=== PATIENT | male | born 1955 | race Caucasian/White ===

== ENCOUNTER 2021-12-31 12:01 | Day surgery (SDC) | payer MEDICARE, OTHER ==
[~2021-12-31] VITALS: Ht 177.8 cm; Wt 95.0 kg
[~2021-12-31 12:01] MED LIST: ASPIRIN EC81 MG PO; GLUCOSAMINE &1 EAC1 PO; LIPITOR40 MG PO; LISINOPRIL-HCT1 EACH PO; SIMVASTATIN20 MG PO; ZANTAC150 MG PO
[2021-12-31] MEDS ORDERED: VITAMIN C500 M1 PO (12:26)
[2021-12-31] MEDS ORDERED: ZINC50 MG PO (12:26)
--- NOTE | 2021-12-31 13:51 | NUR ---
12/31/21 135[address] 134- PT ARRIVES TO PACU AWAKE AND TALKING WITH STAFF. PT REPORTS NO PAIN OR NAUSEA. DISCUSSED WITH PT ABOUT PASSING FLATUS. RESP EVEN AND UNLABORED. OXYGEN SAT MID TO HIGH 90'S ON 2L VIA NC.
--- NOTE | 2022-01-02 10:03 | PATH ---
[facility] [address], [place] [address] Signed SPECIMEN(S): A DUODENAL BIOPSY SPECIMEN(S): B ANTRUM/PYLORUS BIOPSY SPECIMEN(S): C DISTAL ESOPHAGEAL BIOPSY SPECIMEN(S): D MID ESOPHAGEAL BIOPSY SPECIMEN(S): E COLON POLYP AT 30 CM (POSSIBLE POLYP) SPECIMEN SOURCE: A. DUODENAL BIOPSY B. ANTRUM/PYLORUS BIOPSY C. DISTAL ESOPHAGEAL BIOPSY D. MID ESOPHAGEAL BIOPSY E. COLON POLYP AT 30 CM (POSSIBLE POLYP) CLINICAL HISTORY: EGD and colonoscopy. Esophageal dysphagia. Postop: Probable eosinophilic esophagitis; possible polyp at 30 cm. FINAL PATHOLOGIC DIAGNOSIS: A. Duodenum, biopsy: - No significant histopathology. B. Antrum/pylorus, biopsy: - Chemical gastropathy. C. Distal esophagus, biopsy: - Eosinophilic esophagitis. D. Mid esophagus, biopsy: - Eosinophilic esophagitis. E. Colon, 30 cm, polypectomy: - No significant histopathology. - There is no evidence of neoplasia. COMMENT: Regarding specimen A, the sections from the duodenal biopsy show portions of duodenal mucosa with long finger-like villi. There is no villous atrophy, crypt hyperplasia or intraepithelial lymphocytosis, making a diagnosis of celiac disease unlikely. There is no evidence of peptic duodenitis, microorganisms, abnormal infiltrates or neoplasia. Regarding specimen B, these sections reveal features of mild chemical gastropathy. The gastric pits appear slightly irregular, and there is mild mucosal congestion. There is no evidence of acute or chronic inflammation. Chemical gastropathies are most commonly seen in PATIENT NAME: MIGUEL A SHANNON PATHOLOGY DATE OF : 57 REPORT #: [id number] PHYSICIAN: FAUSTO ALMONTE PCP: NO PRIMARY CARE PHYSICIAN REPORT IS CONFIDENTIAL AND NOT TO BE RELEASED WITHOUT AUTHORIZATION [facility] [address], [place] [address] Signed individuals with alkaline reflux, exposure to drugs as well as other chemicals. There is no acute or chronic inflammation. There is no evidence of H. pylori, intestinal metaplasia, abnormal infiltrates or neoplasia. Regarding specimens C and D, the sections through the biopsy show fragments of reactive appearing squamous epithelium that is infiltrated with increased numbers of eosinophils. Focally there are approximately 24 intraepithelial eosinophils per high-power magnification field. Scattered eosinophilic microabscesses are not present. Superficial zonation of the eosinophils is seen. These findings are consistent with the diagnosis of eosinophilic esophagitis. A thickened squamous basal layer is present, and no glandular mucosa is identified. Regarding specimen E, the sections from the specimen are architecturally normal without crypt distortion. There is no acute or chronic inflammation. There are no abnormal infiltrates. There is no evidence of inflammatory, hyperplastic or adenomatous polyps. TWK:caw:[id number] MICROSCOPIC EXAMINATION: Histologic sections of all submitted blocks are examined by light microscopy. These findings, together with the gross examination, support the pathologic diagnosis. GROSS DESCRIPTION: Five specimens are received in five containers, labeled "CM." A. The specimen, labeled "CM, duodenum biopsy," is received in formalin and consists of two chavez soft tissue fragments that measure 0.1-0.2 cm in greatest dimension. The specimen is entirely submitted in cassette (A1). B. The specimen, labeled "CM, antrum biopsy," is received in formalin and consists of two chavez soft tissue fragments that measure 0.1 cm in greatest dimension. The specimen is entirely submitted in cassette (B1). C. The specimen, labeled "CM, distal esophagus biopsy," is received in formalin and consists of four chavez soft tissue fragments that measure 0.3 cm in greatest dimension. The specimen is entirely submitted in cassette (C1). D. The specimen, labeled "CM, mid esophagus biopsy," is received in formalin and consists of ten chavez soft tissue fragments that measure 0.1-0.3 cm in greatest dimension. The specimen is entirely PATIENT NAME: MIGUEL A SHANNON PATHOLOGY DATE OF : 57 REPORT #: [id number] PHYSICIAN: FAUSTO ALMONTE PCP: NO PRIMARY CARE PHYSICIAN REPORT IS CONFIDENTIAL AND NOT TO BE RELEASED WITHOUT AUTHORIZATION [facility] [address], [place] [address] Signed submitted in cassette (D1). E. The specimen, labeled "CM, possible polyp distal colon at 30 cm," is received in formalin and consists of four chavez soft tissue fragments that measure 0.2 cm in greatest dimension. The specimen is entirely submitted in cassette (E1). JS (under the direct supervision of a pathologist) The Gross Description was prepared using a voice recognition system. The report was reviewed for accuracy; however, sound-alike word errors, addition and/or deletions may occur. If there is any question about this report, please contact Client Services. PERFORMING LABORATORY: The technical component was performed by [facility], [address] [place] [id number] (Hall Worker: Irene Hawkins MD; CLIA# [id number]). The professional interpretation was performed by [facility], [facility], [address] [place] [address]. Diagnostician: Luis Enrique Rodríguez MD Pathologist Electronically Signed 01/02/2022 Copies: ~ PATIENT NAME: MIGUEL A SHANNON PATHOLOGY DATE OF : 57 REPORT #: [id number] PHYSICIAN: [facility]ARY [email or web address] PCP: NO PRIMARY CARE PHYSICIAN REPORT IS CONFIDENTIAL AND NOT TO BE RELEASED WITHOUT AUTHORIZATION
--- NOTE | 2022-01-02 10:34 | OR ---
[facility] [address] [place], [place] [address] Signed DATE OF OPERATION: 12/31/2021 SURGEON: Orion Torres MD PREOPERATIVE DIAGNOSES: 1. Chronic progressive dysphagia. 2. Colon screening. POSTOPERATIVE DIAGNOSES: 1. Probable eosinophilic esophagitis. 2. Antral gastritis. 3. Possible polyp at 30 cm (excised with snare technique). PROCEDURE: 1. Total colonoscopy to cecum with cold snare polypectomy x1. 2. Upper endoscopy with biopsies. ANESTHESIA: Intravenous sedation; fentanyl 150 mcg and Versed 7 mg (total). INDICATION: This 66-year-old white man is a patient of Dr. Phillips. He was seen for dysphagia. The patient has undergone upper endoscopy by Dr. Flynn Campa in the past and although uncertain as to the findings, was prescribed possibly steroids, thus suggestive of possible eosinophilic esophagitis in the past. He never followed through with therapy and presented to Dr. Phillips with dysphagia. An upper GI was performed which showed pooling of contrast in the vallecular area, but no sign of neoplasm or stricture proper. He is referred by Dr. Phillips for consideration of upper endoscopy. The patient additionally notes he has never undergone colonoscopy and on that basis that is recommended concurrently. He has no family history of colon cancer or colonic symptoms. The risk of bleeding, infection, and perforation related to both procedures was reviewed in detail. He understands and wished to proceed. FINDINGS: Upper endoscopy showed ring appearing esophagus felinization of the esophagus particularly in the midportion highly suggestive of eosinophilic esophagitis. He had no stricture. He had no hiatal hernia. The stomach did show antral gastritis and mild duodenitis. CLOtest was negative 30 minutes post procedure. Electronically Signed By: ORION TORRES MD 01/02/22 1034 PATIENT NAME: MIGUEL A SHANNON OPERATIVE REPORT DATE OF : 57 REPORT #: [id number] PHYSICIAN: ORION TORRES MD PCP: NO PRIMARY CARE PHYSICIAN REPORT IS CONFIDENTIAL AND NOT TO BE RELEASED WITHOUT AUTHORIZATION [facility] [address] [place], [place] [address] Signed On colonoscopy, the prep was excellent. Complete colonoscopy was undertaken of the cecum. There was an area at 30 cam which was suggestive of a polyp based on its contour and narrow band imaging. On that basis, cold snare polypectomy was undertaken of that area, though it is uncertain if this was an adenomatous polyp. After all. There were no complications. Procedure patient brought to the endoscopy suite given topical lidocaine hypopharyngeal anesthesia, placed in lateral decubitus position. He was given intravenous sedation to the point of slurred speech and nystagmus with full cardiopulmonary monitoring. A bite block was placed. An Olympus video upper endoscope was passed in the hypopharynx. The vocal cords were found to be normal. Scope was advanced to the esophagus and a concentric ring appearing esophagus (felinization) was noted. The scope was passed through the distal esophagus. There was no evidence of stricture. The stomach was intubated with the scope and rugal folds appeared normal. The antrum showed mild antral inflammation and minimal erosive change. The pylorus was normal. Scope was passed through into the duodenum, which showed mild inflammation. There was no sign of ulceration. Biopsies were obtained. The scope was withdrawn. Biopsies taken of the antrum and subsequently antrum and proximal stomach for ADELA and pathologic biopsies. Retroflexed view showed a reasonably good flap valve. Certainly, no evidence of hiatal hernia. Scope was withdrawn and distal esophagus more fully examined showing distal esophagitis, but no stricture. Biopsies were obtained. The scope was withdrawn and in the area of the midesophagus with felinization highly suggestive of eosinophilic esophagitis. Multiple biopsies were obtained. The scope was carefully withdrawn and removed. Plans were then made for colonoscopy. Additional sedation was given. Digital rectal examination was performed and the prostate appeared normal. There was no anorectal abnormality. An Olympus video colonoscope was passed into the rectum and manipulated throughout the colon ultimately intubating the cecum. The ileocecal valve and appendiceal orifice were normal. Scope was withdrawn. There was no abnormality of note until approximately 30 cm where a small area suggestive of a sessile polyp was noted, this was uncertain, though suspicious. Narrow band imaging was undertaken showing the possibility of a flat polyp. This was excised with cold snare technique as well as additional morcellation biopsies. Further withdrawal of the scope showed no other abnormality. Retroflexed view was normal. Scope was removed and the patient was taken to the recovery room in good condition. CONCLUDING DIAGNOSES: 1. Probable eosinophilic esophagitis and duodenitis with gastritis. 2. Possible polyp at 30 cm (excised). PLAN: Electronically Signed By: ORION TORRES MD 01/02/22 1034 PATIENT NAME: MIGUEL A SHANNON OPERATIVE REPORT DATE OF : 57 REPORT #: [id number] PHYSICIAN: ORION TORRES MD PCP: NO PRIMARY CARE PHYSICIAN REPORT IS CONFIDENTIAL AND NOT TO BE RELEASED WITHOUT AUTHORIZATION [address] [address] Signed We will initiate therapy as if for eosinophilic esophagitis to include PPI medication daily as well as Flonase (fluticasone) two puffs b.i.d. swallowed. He will return to see me in approximately 6 to 8 weeks and we will review his pathology reports and clinical progress. MD EVA Watkins/JERI /[id number] cc: Gino Phillips MD Copies: GINO PHILLIPS MD ~ Electronically Signed By: ORION TORRES MD 01/02/22 1034 PATIENT NAME: MIRTHAMIGUEL A SELENA OPERATIVE REPORT DATE OF : 57 REPORT #: [id number] PHYSICIAN: ORION TORRES MD PCP: NO PRIMARY CARE PHYSICIAN REPORT IS CONFIDENTIAL AND NOT TO BE RELEASED WITHOUT AUTHORIZATION
== END 2021-12-31 14:30 | disposition home or self-care (01) ==
LOC: DS 12:01 → OPS 12:01 → DS 13:00 → OPS 13:00
PROVIDERS: ATTEND Surgery
PROC: 0DBH8ZX Excision of Cecum, Via Natural or Artificial Opening Endoscopic, Diagnostic (ICD-10-PCS; 2021-12-31)
PROC: 0DB38ZX Excision of Lower Esophagus, Via Natural or Artificial Opening Endoscopic, Diagnostic (ICD-10-PCS; principal; 2021-12-31 13:00)
PROC: 0DB28ZX Excision of Middle Esophagus, Via Natural or Artificial Opening Endoscopic, Diagnostic (ICD-10-PCS; 2021-12-31 13:00)
DX: K20.0 Eosinophilic esophagitis (principal); K31.9 Disease of stomach and duodenum, unspecified; K29.70 Gastritis, unspecified, without bleeding; I10 Essential (primary) hypertension; E78.5 Hyperlipidemia, unspecified; Z88.0 Allergy status to penicillin; Z20.822 Contact with and (suspected) exposure to COVID-19
CPT/HCPCS: 99153; G0500; J2250; J3010; J7121